=== PATIENT | female | born 1960 | race Caucasian/White ===

== ENCOUNTER 2016-04-28 20:29 | Inpatient (IN) | payer MEDICAID ==
[~2016-04-28] VITALS: Ht 162.6 cm; Wt 71.6 kg
[~2016-04-28 20:29] MED LIST: BUSP15 PO; CLOT15C TP; DSS100 PO; GABA-531 PO; PANT40TA25 PO; QUET25TA PO; QUET300T2 PO; SERT100T12 PO; TRAZ150 PO; VITAD1000 PO
[2016-04-28] MEDS ORDERED: TRAZ150 PO (20:50)
[2016-04-28 21:17] LABS: BASOPHILS # (AUTO) 0.02 K/uL (0.00-0.20); BASOPHILS % (AUTO) 0.6 % (0.0-2.0); EOSINOPHILS # (AUTO) 0.21 K/uL (0.00-0.70); EOSINOPHILS % (AUTO) 6.26 % (1.0-6.0); HEMATOCRIT 36.3 % (36-46); HEMOGLOBIN 12.2 g/dL (12.0-16.0); LYMPHOCYTES # (AUTO) 1.2 K/uL (1.0-4.8); LYMPHOCYTES % (AUTO) 35.8 % (22.0-44.0); MEAN CORPUSCULAR HGB CONC 33.7 G/dL (31.0-37.0); MEAN CORPUSCULAR VOLUME 89 fL (80-100); MONOCYTES # (AUTO) 0.2 K/uL (0.1-1.0); MONOCYTES % (AUTO) 6.5 % (2.0-9.0); NEUTROPHILS # (AUTO) 1.7 K/uL (1.8-7.7); NEUTROPHILS % (AUTO) 50.8 % (40.0-70.0); PLATELET COUNT (AUTO) 81 K/uL (150-450); RED BLOOD CELL COUNT(AUTO) 4.08 MIL/uL (4.00-5.20); WHITE BLOOD COUNT (AUTO) 3.3 K/uL (4.5-11.0)
[2016-04-28 21:28] LABS: ANION GAP 8 mmol/L (8-16); CALCIUM, TOTAL 8.6 mg/dL (8.8-10.5); CARBON DIOXIDE 27 mmol/L (22-29); CHLORIDE 107 mmol/L (98-107); CREATININE 0.92 mg/dL (0.60-1.30); GLOMERULAR FILTR. RATE CALC > 60 mL/min (>60); POTASSIUM 3.8 mmol/L (3.5-5.1); SODIUM SERUM 142 mmol/L (136-145); UREA NITROGEN, BLOOD 13 mg/dL (7-18)
[2016-04-28 21:34] LABS: ALANINE AMINOTRANSFERASE 42 U/L (12-78); ALBUMIN 3.2 g/dL (3.4-5.0); ASPARTATE AMINOTRANSFERASE 61 U/L (15-37); BILIRUBIN,TOTAL 0.7 mg/dL (0.1-1.0); TOTAL PROTEIN, SERUM 7.2 g/dL (6.4-8.2)
[2016-04-28] MEDS ORDERED: LORazepam 2 MG TABLET PO PRN (23:45)
[2016-04-28] MEDS ORDERED: ACETAMINOPHEN 325 MG TABLET PO PRN (23:45)
[2016-04-28] MEDS ORDERED: MAGNESIUM HYDROXIDE SUSPENSION 30 ML UDCUP PO PRN (23:45)
[2016-04-28] MEDS ORDERED: HALOPERIDOL 5 MG TABLET PO PRN (23:45)
[2016-04-28] MEDS ORDERED: ZOLPIDEM TARTRATE 10 MG TABLET PO PRN (23:45)
[2016-04-28] MEDS ORDERED: MAG HYDROX/AL HYDROX/SIMETH ES 30 ML SUSPENSION UDCUP PO PRN (23:45)
[2016-04-29] MEDS ORDERED: LORazepam 2 MG/ML VIAL IM ONE
[2016-04-29] MEDS ORDERED: HALOPERIDOL LACTATE 5 MG/ML VIAL IM ONE
[2016-04-29] MEDS ORDERED: LORazepam 2 MG/ML VIAL ONE (00:13)
[2016-04-29] MEDS ORDERED: HALOPERIDOL LACTATE 5 MG/ML VIAL ONE (00:13)
[2016-04-29] MEDS ORDERED: POTASSIUM CHLORIDE 20 MEQ ER TABLET PO ONE (00:15)
[2016-04-29 00:58] VITALS: BP 112/71
[2016-04-29] MEDS ORDERED: INFLUENZA VIRUS VACCINE QVS 2016-17 (3YR+)/PF 60 MCG/0.5 ML SYRINGE IM ONE (01:45)
[2016-04-29 08:00] VITALS: BP 123/73
[2016-04-29] MEDS ORDERED: MAGNESIUM HYDROXIDE SUSPENSION 30 ML UDCUP PO PRN (09:00)
[2016-04-29] MEDS ORDERED: MAG HYDROX/AL HYDROX/SIMETH ES 30 ML SUSPENSION UDCUP PO PRN (09:00)
[2016-04-29] MEDS ORDERED: BENZOCAINE/MENTHOL LOZENGE MM PRN (09:00)
[2016-04-29] MEDS ORDERED: CloNIDine HCL 0.1 MG TABLET PO PRN (09:00)
[2016-04-29] MEDS ORDERED: ALBUTEROL SULFATE HFA 90 MCG/PUFF 8 GM INHALER IH PRN (09:00)
[2016-04-29] MEDS ORDERED: BACITRACIN 28.4 GM OINTMENT TP PRN (09:00)
[2016-04-29] MEDS ORDERED: ONDANSETRON HCL 4 MG TABLET PO PRN (09:00)
[2016-04-29] MEDS ORDERED: PETROLATUM,WHITE 71 GM JELLY TP PRN (09:00)
[2016-04-29] MEDS ORDERED: ACETAMINOPHEN 325 MG TABLET PO PRN (09:00)
[2016-04-29] MEDS ORDERED: LOPERAMIDE HCL 2 MG CAPSULE PO PRN (09:00)
[2016-04-29] MEDS ORDERED: IBUPROFEN 600 MG TABLET PO PRN (09:00)
[2016-04-29] MEDS: CHOLECALCIFEROL (VIT D3) 1,000 UNITS TABLET PO SCH (10:40)
[2016-04-29 21:51] VITALS: BP 117/76
[2016-04-30 08:40] VITALS: BP 118/71
[2016-04-30] MEDS: SERTRALINE HCL 100 MG TABLET PO SCH (08:53)
[2016-04-30] MEDS: CHOLECALCIFEROL (VIT D3) 1,000 UNITS TABLET PO SCH (08:53)
[2016-04-30 16:59] VITALS: BP 129/86
[2016-04-30] MEDS: TraZODone HCL 100 MG TABLET PO SCH (21:02)
[2016-04-30] MEDS: QUEtiapine FUMARATE 300 MG TABLET PO SCH (21:02)
[2016-05-01 08:04] VITALS: BP 108/60
[2016-05-01] MEDS: CHOLECALCIFEROL (VIT D3) 1,000 UNITS TABLET PO SCH (08:55)
[2016-05-01] MEDS: SERTRALINE HCL 100 MG TABLET PO SCH (08:55)
[2016-05-01 16:36] VITALS: BP 110/79
[2016-05-01] MEDS: QUEtiapine FUMARATE 300 MG TABLET PO SCH (20:06)
[2016-05-01] MEDS: TraZODone HCL 100 MG TABLET PO SCH (20:07)
[2016-05-02 08:04] VITALS: BP 108/65
[2016-05-02] MEDS: SERTRALINE HCL 100 MG TABLET PO SCH (08:51)
[2016-05-02] MEDS: QUEtiapine FUMARATE 200 MG TABLET PO SCH (08:51)
[2016-05-02] MEDS: CHOLECALCIFEROL (VIT D3) 1,000 UNITS TABLET PO SCH (08:51)
[2016-05-02] MEDS: NICOTINE 21 MG/24 HOUR PATCH TD SCH (08:53)
[2016-05-02 18:56] VITALS: BP 118/75
[2016-05-02] MEDS: TraZODone HCL 100 MG TABLET PO SCH (20:20)
[2016-05-02] MEDS: QUEtiapine FUMARATE 300 MG TABLET PO SCH (20:20)
[2016-05-03 08:08] VITALS: BP 111/72
[2016-05-03] MEDS: QUEtiapine FUMARATE 200 MG TABLET PO SCH (08:30)
[2016-05-03] MEDS: CHOLECALCIFEROL (VIT D3) 1,000 UNITS TABLET PO SCH (08:30)
[2016-05-03] MEDS: NICOTINE 21 MG/24 HOUR PATCH TD SCH (08:33)
[2016-05-03] MEDS ORDERED: SERTRALINE HCL 100 MG TABLET PO SCH (09:00)
== END 2016-05-03 18:00 | disposition home or self-care (01) | DRG 750 ==
LOC: EMS 20:31 → 3EI 23:15
PROVIDERS: ADMIT Psychiatry & Neurology Psychiatry; ATTEND Psychiatry & Neurology Psychiatry
DX: F25.0 Schizoaffective disorder, bipolar type (principal); D69.6 Thrombocytopenia, unspecified; R45.851 Suicidal ideations; B18.2 Chronic viral hepatitis C; F17.210 Nicotine dependence, cigarettes, uncomplicated; G47.00 Insomnia, unspecified; E55.9 Vitamin D deficiency, unspecified; J44.9 Chronic obstructive pulmonary disease, unspecified; R45.87 Impulsiveness; J45.909 Unspecified asthma, uncomplicated; Z88.1 Allergy status to other antibiotic agents; Z79.51 Long term (current) use of inhaled steroids; Z79.899 Other long term (current) drug therapy; Z71.6 Tobacco abuse counseling; Z28.21 Immunization not carried out because of patient refusal
CPT/HCPCS: 96372; 99285; G0480; J1630; J2060; J3535